=== PATIENT | male | born 1985 ===

== ENCOUNTER 2024-12-22 06:38 | Day surgery (SDC) | payer OTHER, SELFPAY | END 2024-12-22 13:12 | disposition home or self-care (01) | LOC: GI 06:38 | PROVIDERS: ATTENDING PHYSICIAN Surgery | DX: K62.5 Hemorrhage of anus and rectum (principal); K64.4 Residual hemorrhoidal skin tags; K64.8 Other hemorrhoids; D12.3 Benign neoplasm of transverse colon | CPT/HCPCS: 45385; 88305 ==